=== PATIENT | male | born 1945 | race Caucasian/White ===

== ENCOUNTER 2018-12-09 02:23 | Emergency (ER) | payer MEDICARE, OTHER, SELFPAY ==
[2018-12-09 02:29] VITALS: BP 121/63; PULSE 113; RESP 16; TEMP 36.5; O2SAT 97
[2018-12-09 02:33] VITALS: RESP 16
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
--- NOTE | 2018-12-09 03:38 | NUR.NOTE ---
Standing to void in urinal with 1 assist.
--- NOTE | 2018-12-09 05:15 | NUR.NOTE ---
Ambulated to BR with 1 assist. Gait more steady than on arrival.
--- NOTE | 2018-12-09 06:26 | NUR.NOTE ---
Spoke with pt sister on the phone. States she will be able to pick him up when it's light out. States pt had fall, no head strike, no LOC. Pt denies pain. Aware he is waiting for ride. Gait more steady, ambulating to BR.
[2018-12-09 06:28] VITALS: BP 126/77; PULSE 102; RESP 16; O2SAT 96
--- NOTE | 2018-12-09 06:41 | NUR.NOTE ---
3 skin tears to right elbow. NS wash, bacitracin/DSD applied. provided with natalio may.
--- NOTE | 2018-12-09 08:19 | NUR.NOTE ---
Nursing Note: pt resting in the room denies any needs at this time. awaiting ride.
[2018-12-09 08:22] VITALS: BP 135/76; PULSE 110; TEMP 36.8; O2SAT 97
== END 2018-12-09 08:23 | disposition home or self-care (01) ==
PROVIDERS: Emergency Provider Emergency Medicine
DX: F10.120 Alcohol abuse with intoxication, uncomplicated (principal)
CPT/HCPCS: 99282